=== PATIENT | female | born 1995 | race Caucasian/White ===

== ENCOUNTER 2019-12-03 17:33 | Emergency (ER) | payer OTHER ==
[~2019-12-03] VITALS: Ht 172.7 cm; Wt 68.0 kg
[2019-12-03] MEDS ORDERED: AZITHROMYCIN250 MG PO (22:05)
[2019-12-03] MEDS ORDERED: VITAMIN D3-ALO1 EACH PO (22:05)
[2019-12-03] MEDS ORDERED: ACETAMINOPHEN500 M1 PO (22:05)
[2019-12-03] MEDS ORDERED: VITAMIN C1000 MG PO (22:05)
[2019-12-03] MEDS ORDERED: MELATONIN10 M2 PO (22:05)
[2019-12-03] MEDS ORDERED: ZINC GLUCONATE100 MG PO (22:05)
[2019-12-03] MEDS ORDERED: DECADRON6 MG PO (22:05)
== END 2019-12-03 21:43 | disposition home or self-care (01) ==
LOC: ER 17:33
DX: U07.1 COVID-19 (principal); B33.8 Other specified viral diseases